=== PATIENT | female | born 1995 | race Caucasian/White ===

== ENCOUNTER → 2016-10-28 | Outpatient (CLI) | payer MEDICAID ==
[~2016-10-28] MED LIST: NOMEDS XX; OMEPRAZOLE40 MG PO; ORTHO TRI-CYCLE1 TAB PO; SEPTRA DS 800 M1 TAB PO; VOLTAREN75 MG PO
[2016-10-28 11:34] LABS: LYMPH # 1.9 K/mm3 (0.7-4.5); LYMPH % 20.8 % (10-50.0)
[2016-10-28 11:35] LABS: HEMOGLOBIN 13.4 g/dL (12.2-16.2)
[2016-10-28 12:32] LABS: ABO BLOOD TYPE O; RH BLOOD TYPE POSITIVE
--- NOTE | 2016-10-28 16:57 | RADIOLOGY REPORT PS360 ---
US TRANSVAGINAL PREG ORDERING PHYSICIAN : Víctor Thompson MD PATIENT AGE: 20 years GENDER: Female INDICATION: OB TV FOR DATES TECHNIQUE: Transvaginal ultrasound COMPARISON: No relevant FINDINGS Single viable intrauterine gestation. Amnion identified. Amnion chorion have not yet fused Developing legs identified. Developing Placenta appears to be posterior. Average ultrasound age 10 weeks 0 day. Gestational age = 11 weeks 4 days based on LMP 08/08/2016 Yolk sac identified and measures 0.63 cm. [place]-rump length 3.08 cm = 10 weeks 0 day. Heart rate 146 BPM Cervix measures 3.2 cm in length. Appears long and closed Right ovary 3.6 cm as 1.6 cm x 2 cm Suspect vaguely collapsed corpus luteum cyst on 1.6 cm x 1.2 cm cm at right ovary. Left ovary 2.7 x 1.7 x 1.8 cm. Small follicles of both ovaries. No significant appearing cyst. No fluid in cul-de-sac IMPRESSION: Single viable intrauterine gestation 10 weeks 0 day ultrasound age
[2016-10-29 08:42] LABS: HBsAg Screen Negative (Negative); HIV Screen 4th Generation wRfx Non Reactive (Non Reactive); Rapid Plasma Reagin, Quant Non Reactive (NonRea<1:1); Rubella Antibodies, IgG 3.08 index (Immune >0.99)
== END ==
LOC: LAB 10:18 → RAD 10:18
PROVIDERS: Nurse Practitioner Obstetrics & Gynecology
DX: O26.841 Uterine size-date discrepancy, first trimester (principal); Z34.00 Encounter for supervision of normal first pregnancy, unspecified trimester
CPT/HCPCS: G0432

== ENCOUNTER → 2017-04-21 | Outpatient (CLI) | payer MEDICAID ==
[~2017-04-21] MED LIST changes: +IRON TABLETS325 MG PO; +PRENATAL PLUS1 TA1 PO
== END ==
LOC: LAB 18:13
DX: Z34.80 Encounter for supervision of other normal pregnancy, unspecified trimester (principal)

== ENCOUNTER 2017-05-28 02:49 | Inpatient (IN) | payer MEDICAID ==
[~2017-05-28] VITALS: Ht 157.5 cm; Wt 60.3 kg
[2017-05-28 03:41] VITALS: BP 000/00; BP 131/73
[2017-05-28 06:03] LABS: URINE BILIRUBIN - DIPSTICK NEGATIVE (NEG); URINE BLOOD NEGATIVE (NEG)
[2017-05-28 06:05] LABS: HEMOGLOBIN 12.6 g/dL (12.2-16.2); LYMPH # 2.5 K/mm3 (0.7-4.5)
[2017-05-28 06:14] LABS: ABO BLOOD TYPE O; RH BLOOD TYPE POSITIVE
[2017-05-28 06:14] LABS: AMPHETAMINES/METAMPHETAMINES NEGATIVE ng/mL (<1000)
[2017-05-28 07:21] VITALS: BP 130/79
--- NOTE | 2017-05-28 07:36 | LABOR NOTE ---
Laboring Subjective Subjective Date 05/28/17 Time 0734 Subjective: Pt is having irregular contractions Laboring Objective Objective NST: Reactive Contractions: q 4-5 minutes Cervical dilation: 3-4 Effacement: 75% Station: -2 Membranes are: Artificially ruptured (with clear fluid) Fetus monitoring? Yes Type: External Laboring Assessment Assessment Progressing? Yes Cephalopelvic disproportion? No Problem List: 1. Post term Laboring Plan Plan Anethesia for epidural? No Continue to labor down? Yes Plan for ? No Continue to monitor? Yes Start pushing? No at 0736
--- NOTE | 2017-05-28 09:46 | LABOR NOTE ---
Laboring Subjective Subjective Date 05/28/17 Time 0945 Subjective: Pt is having regular contractions Laboring Objective Objective NST: Reactive Contractions: q 2-3 minutes Cervical dilation: 5 Effacement: 100% Station: 0 Membranes are: Artificially ruptured (with clear fluid) Fetus monitoring? Yes Type: External Laboring Assessment Assessment Progressing? Yes Cephalopelvic disproportion? No Problem List: 1. Post term Laboring Plan Plan Anethesia for epidural? No Continue to labor down? Yes Plan for ? No Continue to monitor? Yes Start pushing? No at 0946
[2017-05-28 11:40] LABS: URINE BILIRUBIN - DIPSTICK NEGATIVE (NEG); URINE BLOOD TRACE-INTACT (NEG)
--- NOTE | 2017-05-28 12:42 | Delivery Note ---
Delivery note Delivery date: 05/28/17 Delivery time: 1220 Anesthesia: Epidural, Marcelino Agarwal Was labor medically induced? No Gestational age in weeks: 40 weeks Days: 1 day Delivery prior to 39 weeks? No Sex: male score at one minute: 7 at 5 minutes: 8 Type of suction: bulb AF: Clear fluid LAC or MLE: LAC (2nd degree) Delivery procedure: Low Vacuum Delivery Delivery of placenta: spontaneous Clinical note She is a 21-year-old 1 para 0 who was 40+1 weeks gestational age. She was having contractions and pressure and after having discussed her some benefit she came in for augmentation of labor. She started on IV oxytocin and had her membranes ruptured. She was found be 4 cm dilated. She subsequent LEEP progressed to full dilation and had a labor epidural. She was having some bradycardia at times and she was not pushing effectively so we elected to place the vacuum in the direct OA position at station +3. We had one pop off with pulling and then with a second long gentle pull she delivered a live-born male child at 12:20 PM of May 28, 2017. On delivery the head it was noted that there was a loose nuchal cord which was easily reduced. This was followed by deliver the anterior shoulder and the rest of the infant's body atraumatically. The oropharynx and nasal fracture bulb suction. The baby cried spontaneously. We allowed the umbilical cord continue to pulsate for proximally 45 seconds to a minute. We then doubly clamped cord and cut the cord. The baby was then handed to nurses who assigned Apgars of 7 at 1 minute and 8 at 5 minutes. We then obtained cord blood as well as cord pH. The pH was 7.29. Using gentle traction on the cord and countertraction on the fundus I was able to easily deliver the placenta intact. It had a normal three-vessel cord. She has second degree perineal laceration that was repaired with interrupted 3-0 Vicryl P suture to the superficial tissues and 2-0 Vicryl suture to the deep tissues. She has O positive blood, she is rubella immune and was group B streptococcus negative. She plans to breast-feed. Her oral surgery assistant is Dr. Nettles. Estimate a blood loss was approximately 400 mL. at [id number]
[2017-05-29 07:16] LABS: HEMOGLOBIN 12.2 g/dL (12.2-16.2)
[2017-05-29 08:11] VITALS: BP 121/72
--- NOTE | 2017-05-29 10:41 | ACUTE CARE PROGRESS NOTE (QUA) ---
Progress Notes Subjective Date 05/29/17 Time 1040 Note She continues to do very well. She is eating and drinking and ambulating. She has not started breast-feeding. Patient/family reports: feeling better, no complaints Objective Findings Last VS-Temp:98.0 B/P:121/72 Pulse:85 Resp:18 SaO2: Last weight lbs:133 oz:0 K.328 Method:Stated Laboratory Tests 05/29/17 0630: Hgb 12.2, Hct 34.6 L 05/28/17 1225: Cord Blood pH 7.30 L Exam General appearance: normal appearance, alert, awake, no acute distress Reviewed: vital signs, lab results Assessment/Plan Problem List 1. Post term Patient condition Improving, Stable Plan: continue current care This inpt stay is expected to cross 2 MNs from start of care Yes Comments: She is doing very well and we will plan to send her home tomorrow. at 1041
[2017-05-29 20:42] VITALS: BP 109/56
--- NOTE | 2017-05-30 07:41 | ACUTE CARE PROGRESS NOTE (QUA) ---
Progress Notes Subjective Date 05/30/17 Time 0740 Note She is doing very well this morning. She is eating and drinking and ambulating. She is bottlefeeding. Her lochia is normal. Patient/family reports: feeling better, no complaints Objective Findings Last VS-Temp:97.7 B/P:109/56 Pulse:81 Resp:18 SaO2: Last weight lbs:133 oz:0 K.328 Method:Stated Exam General appearance: normal appearance, alert, awake, no acute distress Reviewed: vital signs, lab results Assessment/Plan Problem List 1. Post term Patient condition Improving, Stable Plan: continue current care, initiate discharge plan This inpt stay is expected to cross 2 MNs from start of care Yes Comments: She is doing very well this morning. We will plan to send her home today. at 0741
--- NOTE | 2017-05-30 07:48 | Discharge Summary ---
Discharge Summary Admission date: 06/25/17 Discharge date: 05/30/17 Discharge diagnoses: Postterm , spontaneous vaginal delivery, Clinical note: She is a 21-year-old 1 now para 1 who was 40+1 weeks gestational age. She was having some contractions and pressure and as result of that we augmented her labor. Course in hospital: She was started on IV oxytocin and had her membranes ruptured. She progressed under labor epidural to full dilation and delivered spontaneously a liveborn male child at 12:20 PM in the afternoon of May 28, 2017. The baby had Apgars of 7 at 1 minute and 8 at 5 minutes. He weighed 7 lbs. 13 oz. and was 20 inches long. She has done well and has remained afebrile throughout her hospitalization. She is eating and drinking and ambulating. She is feeding. Her lochia is normal. She has O positive blood, she is rubella immune and was group B streptococcus negative.Laboratory Tests 05/28/17 0520: Opiates Screen NEGATIVE, Urine Methadone Screen NEGATIVE, Barbiturates NEGATIVE, Phencyclidine Screen NEGATIVE, Amphetamines Screen NEGATIVE, Benzodiazepines Screen NEGATIVE, Cocaine Screen NEGATIVE, Marijuana (THC) Screen NEGATIVE, Urine Mucus 1+ 05/28/17 0540: WBC 11.3, RBC 3.83, MCV 93.6, RDW 12.5, Plt Count 258, MPV 7.9, Gran % 72.7, Gran # 8.2, Lymphocytes % 22.0, Monocytes % 4.4, Eosinophils % 0.8, Basophils % 0.2, Lymphocytes # 2.5, Monocytes # 0.5, Eosinophils # 0.1, Basophils # 0.0, PUBS MCHC 35.1, Antibody Screen NEGATIVE, Miscellaneous Test POSITIVE 05/28/17 0540: MCH 32.9 05/28/17 1018: Urine Color YELLOW, Urine Appearance CLEAR, Urine pH 7.0, Ur Specific [place] 1.010, Urine Protein NEGATIVE, Urine Ketones NEGATIVE, Urine Blood TRACE-INTACT, Urine Nitrate NEGATIVE, Urine Bilirubin NEGATIVE, Urine Urobilinogen 0.2, Ur Leukocyte Esterase NEGATIVE, Urine RBC 3-5, Urine WBC OCC, Ur Squamous Epith Cells NONE, Urine Bacteria 1+, Urine Glucose NEGATIVE 05/28/17 1225: Cord Blood pH 7.30 05/29/17 0630: Hgb 12.2, Hct 34.6 Plans for ongoing care: She is discharged home to follow-up with me in approximately 2 weeks' time. Discharge medications She will continue with her vitamins and iron. She is just taking over- the-counter analgesics. DC/follow-up instructions She was given the usual instructions with respect to limiting her activity, driving and sexual activity. Condition at discharge Stable and improved at 0747
[2017-05-30 09:05] VITALS: BP 128/73
== END 2017-05-30 13:20 | disposition home or self-care (01) | DRG 775 ==
LOC: OB 02:49
PROVIDERS: Nurse Practitioner Obstetrics & Gynecology
PROC: 0KQM0ZZ Repair Perineum Muscle, Open Approach (ICD-10-PCS; principal; 2017-05-28)
PROC: 10D07Z6 Extraction of Products of Conception, Vacuum, Via Natural or Artificial Opening (ICD-10-PCS; principal; 2017-05-28)
DX: O76 Abnormality in fetal heart rate and rhythm complicating labor and delivery (principal); O70.1 Second degree perineal laceration during delivery; Z3A.40 40 weeks gestation of pregnancy; Z37.0 Single live birth

== ENCOUNTER → 2017-09-09 | Outpatient (CLI) | payer MEDICAID ==
--- NOTE | 2017-09-09 15:55 | RADIOLOGY REPORT PS360 ---
CHEST(2 VIEWS-NOT PORTABLE) HISTORY: Cough and wheezing WHEEZING ORDERING PHYSICIAN: YANI WHITE PATIENT AGE: 21 years COMPARISON: 02/14/2015 FINDINGS: The cardiomediastinal silhouette and pulmonary vascularity are within normal limits. The lungs are clear without infiltrates, suspicious nodules, or pleural effusions. There is hyperinflation which may be secondary to bronchitis or asthma. No acute bony abnormalities. There is calcified granuloma in the lingula. No lobar consolidation or collapse. IMPRESSION: Hyperinflation which may be due to bronchitis or asthma otherwise negative
== END ==
LOC: RAD 14:52
DX: R06.2 Wheezing (principal)